=== PATIENT | female | born 1935 | race Caucasian/White ===

== ENCOUNTER 2017-02-12 05:49 | Inpatient (IN) ==
[2017-02-12 07:18] LABS: Basophils % 0.4 % (0.0-0.8); Eosinophils # 0.4 10*3/uL (0.0-0.87); Eosinophils % 5.4 % (0.00-10.9); Hemoglobin 12.8 GM/DL (12.0-16.0); Immature Granulocytes % 0.6 %; Immature Granulocytes Absolute 0.05 #; Lymphocytes # 1.3 10*3/uL (1.4-4.0); Lymphocytes % 17.2 % (21.3-54.2); Mean Corpuscular HGB Conc 32.8 GM/DL (32-36); Mean Corpuscular Hemoglobin 29 PG (27-34); Mean Platelet Volume 9.5 FL (9.6-12.0); Monocytes # 0.5 10*3/uL (0.11-0.8); Monocytes % 6.7 % (1.7-12.7); Neutrophils # 5.4 10*3/uL (1.4-7.4); Neutrophils % 69.7 % (38.7-73.9); Platelet Count 177 T/CUMM (130-400); Red Blood Count 4.43 MC/CUMM (3.8-5.5); Red Cell Distribution Width 14.6 % (9.3-17.3); White Blood Count 7.7 T/CUMM (4-12)
[2017-02-12 08:04] LABS: Calcium 9.7 MG/DL (8.5-10.1); Magnesium 2.6 MG/DL (1.8-2.4); Osmolality,Calculated 290.8 MOS/KG (273-304); Potassium 3.8 MMOL/L (3.5-5.1)
[2017-02-12] MEDS ORDERED: ACETAMINOPHEN 325 MG TABLET PO PRN (08:36)
[2017-02-12] MEDS ORDERED: DOCUSATE SODIUM 100 MG CAPSULE PO PRN (08:36)
[2017-02-12] MEDS ORDERED: MAGNESIUM SULF RIDER 2 GM in PREMIX 1 EACH IV PRN (08:36)
[2017-02-12] MEDS ORDERED: ZALEPLON 5 MG CAPSULE PO PRN (08:36)
[2017-02-12] MEDS ORDERED: ONDANSETRON 4 MG/2 ML VIAL IV PRN (08:36)
[2017-02-12] MEDS ORDERED: MAGNESIUM SULF RIDER 4 GM in PREMIX 1 EACH IV PRN (08:36)
[2017-02-12] MEDS ORDERED: POLYETHYLENE GLYCOL POWDER 17 GM PACK PO SCH (09:00)
[2017-02-12] MEDS ORDERED: BISACODYL 5 MG TABLET PO SCH (09:00)
[2017-02-12] MEDS: risperiDONE 1 MG TABLET PO SCH ×2 (10:18→21:03)
[2017-02-12] MEDS: LEVOTHYROXINE 125 MCG TABLET PO SCH (10:18)
[2017-02-12] MEDS: clonazePAM 0.5 MG TABLET PO SCH ×2 (10:18→21:03)
[2017-02-12] MEDS: ASPIRIN EC 81 MG TABLET PO SCH (10:18)
[2017-02-12] MEDS: FUROSEMIDE 40 MG TABLET PO SCH (10:19)
[2017-02-12] MEDS: MULTIVITAMIN (CENTRUM) TABLET PO SCH (10:19)
[2017-02-12] MEDS: POTASSIUM CHLORIDE 8 MEQ CAPSULE PO SCH (10:19)
[2017-02-12] MEDS: GABAPENTIN 600 MG TABLET PO SCH ×2 (10:20→21:03)
[2017-02-12] MEDS: CARBIDOPA/LEVODOPA 25-100 MG TABLET PO SCH ×2 (10:20→21:03)
[2017-02-12] MEDS: DOCUSATE SODIUM 100 MG CAPSULE PO SCH (10:20)
[2017-02-12] MEDS: CALCIUM (CARBONATE)/VITAMIN D 600 MG-400 UNIT TABLET PO SCH (10:20)
[2017-02-12] MEDS: ISOSORBIDE MONONITRATE 30 MG TABLET PO SCH (10:20)
[2017-02-12] MEDS: OMEGA 3 ACID ETHYL ESTERS 1 GM CAPSULE PO SCH ×2 (10:20→21:04)
[2017-02-12] MEDS: PANTOPRAZOLE 40 MG TABLET PO SCH (10:20)
[2017-02-12] MEDS: NYSTATIN POWDER 15 GM BOTTLE TOP SCH ×3 (10:21→21:04)
[2017-02-12] MEDS: LITHIUM 300 MG CAPSULE PO SCH (10:21)
[2017-02-12] MEDS: ENOXAPARIN 40 MG/0.4 ML SYRINGE SUBCUT SCH (10:21)
[2017-02-12] MEDS: TICAGRELOR 90 MG TABLET PO SCH ×2 (10:21→21:03)
[2017-02-12] MEDS: METOPROLOL SUCCINATE XL 25 MG TABLET PO SCH (10:25)
[2017-02-12] MEDS: HydrOXYzine PAMOATE 50 MG CAPSULE PO SCH ×2 (10:25→21:03)
[2017-02-12] MEDS: AMOXICILLIN/CLAV 500 MG TABLET PO SCH ×2 (10:25→16:30)
--- NOTE | 2017-02-12 12:17 | Cardiology History & Physical ---
Assessment and Plan (1) Syncope Status: Acute Assessment and plan: 82-year-old female, CAD, syncope, documented monomorphic and polymorphic wide QRS tachycardia, although tracings are heavy with artifacts. Underlying right bundle branch block, obesity, vaginal discharge, groin rash. -We discussed this first we have to address her skin infection and suspected vaginal infection, before we can proceed with an EP study plus minus ICD implant. -We will admit her to telemetry. -Start nystatin powder topical and Augmentin p.o. -UA/urine culture -MANUFACTURER REPRESENTATIVE consult. -Keep the metoprolol at 25 mg daily, baseline bradycardia limits dose increase. -If her skin findings and discharge improves, we can proceed with the planned studies as above, tomorrow. Current Visit: Yes (2) RBBB Status: Acute Current Visit: Yes (3) Wide QRS ventricular tachycardia Status: Acute Current Visit: Yes (4) Groin rash Status: Acute Current Visit: Yes (5) Vaginal discharge Status: Acute Current Visit: Yes History of Present Illness Chief complaint: Syncope, tachycardia, vaginal infection History of present illness: Ms. Michel is a 82 year old female, followed by dr. Alexander. H/o CAD, 1AVB/RBBB , obesity, HTN, HLP, BPD, parkinson. Outpatient monitoring confirmed monomorphic and polymorphic wide QRS tachycardia, although the tracings were heavy with artifacts. An EP study plus minus defibrillator implant was planned for today. She is feeling fine. On admission, she was found to have severe bilateral groin rash and vaginal discharge. She denies any UTI symptoms fever chills. She was not aware of her prior infections or MONOTYPE SETTER issues. She has vaginal itching. EKG sinus rhythm, borderline first-degree AV block, right bundle branch block. She has mild CKD, but WBC count is normal. Home Medications Medication Instructions Recorded Confirmed Type Aspirin [Ecotrin] 81 mg PO DAILY 02/11/17 02/12/17 History Bisacodyl Tab [Dulcolax Tab] 2 tablet PO Q7DAY 02/11/17 02/12/17 History Calcium Carb/Vit D3/Minerals [Sm 1 each PO DAILY 02/11/17 02/12/17 History Calcium 600+Minerals Tab] Carbidopa/Levodopa 25-100 [Sinemet 1 tablet PO BID 02/11/17 02/12/17 History 25-100] Docusate Sodium [Colace] 100 mg PO DAILY 02/11/17 02/12/17 History Furosemide Tab [Lasix Tab] 40 mg PO DAILY 02/11/17 02/12/17 History Gabapentin 600 mg PO BID 02/11/17 02/12/17 History HydrOXYzine PAMOATE CAP [Vistaril 50 mg PO Q12HR 02/11/17 02/12/17 History Cap] Isosorbide Mononitrate [Isosorbide 30 mg PO DAILY 02/11/17 02/12/17 History Mononitrate ER] Levothyroxine Tab [Synthroid Tab] 125 mcg PO DAILY 02/11/17 02/12/17 History Tees Toh Carbonate 150 mg PO BEDTIME 02/11/17 02/12/17 History Tees Toh Carbonate 300 mg PO DAILY 02/11/17 02/12/17 History Lovastatin [Mevacor] 40 mg PO DAILY W/SUPPER 02/11/17 02/12/17 History Metoprolol Succinate 25 mg PO DAILY 02/11/17 02/12/17 History Mirtazapine [Remeron] 30 mg PO BEDTIME 02/11/17 02/12/17 History Multivitamin [One Daily 1 each PO DAILY 02/11/17 02/12/17 History Multivitamin] Bascom-3/Dha/Epa/Fish Oil [Fish Oil 1 each PO BID 02/11/17 02/12/17 History 1,000 mg Softgel] Pantoprazole Tab [Protonix Tab] 40 mg PO DAILY 02/11/17 02/12/17 History Polyethylene Glycol Powder 17 gm PO DIRECTED 02/11/17 02/12/17 History [Miralax] Potassium Chloride 8 meq PO DAILY 02/11/17 02/12/17 History Ticagrelor [Brilinta] 90 mg PO BID 02/11/17 02/12/17 History clonazePAM [Clonazepam] 0.5 mg PO BID 02/11/17 02/12/17 History risperiDONE [Risperidone] 2 mg PO BID 02/11/17 02/12/17 History Allergies Allergy/AdvReac Type Severity Reaction Status Date / Time Sulfa (Sulfonamide Allergy Intermediate RASH Unverified 02/11/17 06:47 Antibiotics) fluoxetine [From Prozac] AdvReac Mild Confusion Unverified 02/11/17 06:47 12 point system: reviewed and no additional remarkable complaints except as stated Medical,Surgical,& Family Hx - Medical History Cardio: History of: Cardiac Dysrhythmia, CAD, Hypertension Psychological: History of: Anxiety Disorders, Bipolar Disorder, Schizophrenia Neurology: No history of: Seizures HEENT: History of: Eye Problem (Eye glasses intact), Dental Problems (upper dentures and nothing on lower) Endocrine: History of: Thyroid Disorder Respiratory: History of: Pneumonia (3 years ago [facility] system) Gastrointestinal: History of: GERD, GI Problems (constipation) Musculoskeletal: History of: Musculoskeletal Problems (Require physical therapy for mobility) - Surgical History Cardiac Surgeries: Sugical HX of: Cardiac Catheterization (month ago stent at [place] and history of stents over 4 years ago) - Family History Family History: Reports;: Family Heart Disease (Father passed of CA) Comment Only: Additional Family History (mother of emphysema) - Social History Smoking Status: Former smoker Type of Drug Use: None Cardiology Physical Exam - Constitutional Vitals: Vital Signs Temp Pulse Resp BP Pulse Ox 97 F L 51 L 16 161/73 97 02/12/17 07:49 02/12/17 07:49 02/12/17 07:49 02/12/17 07:49 02/12/17 07:49 Intake and Output 02/11/17 02/12/17 02/12/17 23:59 07:59 15:59 Other: Weight 103.873 kg Patient Weight 02/12/17 23:59 Weight 103.873 kg General appearance: no acute distress, morbidly obese - Head Head exam: Present: normal inspection, normocephalic - Eye Eye exam: Absent: conjunctival injection Pupils: Absent: dilated - ENT ENT exam: Present: normal external ear exam - Neck Neck exam: Present: normal inspection - Respiratory Respiratory exam: Present: clear to auscultation bilaterally. Absent: chest wall tenderness - Cardiovascular Cardiovascular exam: Present: bradycardia - GI/Abdominal GI/Abdominal exam: Present: normal bowel sounds - Extremities Exam Extremities exam: Present: normal inspection, edema (1+), other (groin rash) - Neurological Exam Neurological exam: Present: alert, oriented X3 - Psychiatric Psychiatric exam: Present: normal affect, normal mood - Skin Skin exam: Present: normal color, warm. Absent: cyanosis Result/EKG - Labs CBC & BMP: 02/12/17 07:11 02/12/17 07:11 Lab Results: I have reviewed the past 24 hour labs Labs: Laboratory Results - last 24 hr 02/12/17 02/12/17 07:11 07:11 WBC 7.7 RBC 4.43 Hgb 12.8 Hct 39.0 MCV 88.0 MCH 29 MCHC 32.8 RDW 14.6 Plt Count 177 MPV 9.5 L Neut % (Auto) 69.7 Lymph % (Auto) 17.2 L [place] % (Auto) 6.7 Eos % (Auto) 5.4 Baso % (Auto) 0.4 Neut # (Auto) 5.4 Lymph # (Auto) 1.3 L [place] # (Auto) 0.5 Eos # (Auto) 0.4 Baso # (Auto) 0.0 Immature Gran % 0.6 Nucleated RBC % 0.0 Immature Gran # 0.05 Nucleated RBCs # 0.00 Sodium 144 Potassium 3.8 Chloride 108 H Carbon Dioxide 29 Anion Gap 10.8 BUN 27 H Creatinine 1.50 H GFR Calculation 37 BUN/Creatinine Ratio 18.00 Glucose 101 Calculated Osmolality 290.8 Calcium 9.7 Magnesium 2.6 H - EKG EKG results: interpreted by me
[2017-02-12] MEDS ORDERED: POLYETHYLENE GLYCOL POWDER 17 GM PACK PO PRN (14:07)
--- NOTE | 2017-02-12 14:07 | EKG Report ---
Stationary ECG Study [facility] Test Date: 02/12/2017 6:26:49 AM Pat Name: OSCAR JACOBO Department: Room: 285 Gender: F Sat Instructor: : [id number] Requested by: Denny Segovia Order Number: [id number] Reading MD: DENNY SEGOVIA Intervals [place] Rate: 46 P: 75 [place]: 236 QRS: 94 QRSD: 171 T: -26 QT: 530 QTc: 488 Interpretive Statements SINUS BRADYCARDIA WITH SINUS ARRHYTHMIA WITH FIRST DEGREE AV BLOCK RIGHT BUNDLE BRANCH BLOCK T WAVE ABNORMALITY, POSSIBLE ANTEROLATERAL ISCHEMIA Electronically Signed On 02-13-17 22:43:13 CDT by DENNY SEGOVIA [email or web address]
[2017-02-12] MEDS: LOVASTATIN 20 MG TABLET PO SCH (16:30)
[2017-02-12 17:11] LABS: Apearance,Urine CLEAR (Clear); Bilirubin,Urine Negative (Negative); Blood, Urine Negative (Negative); Glucose,Urine (UA) Negative (Negative); Ketones,Urine Negative (Negative); Nitrite,Urine Negative (Negative); Protein,Urine Negative; RBC,Urine 1 /HPF (0-4); Squamous Epithelial Cell,Urine Occasional /HPF (0-10); Urine Color Colorless (Yellow); Urine Specific Gravity 1.004 (1.001-1.035); Urine Urobilinogen < 2.0 EU/DL (0.2-1.0); WBC,Urine 10 /HPF (0-6)
[2017-02-12] MEDS: MIRTAZAPINE 15 MG TABLET PO SCH (21:03)
[2017-02-12] MEDS: LITHIUM 150 MG CAPSULE PO SCH (21:03)
[2017-02-13] MEDS: AMOXICILLIN/CLAV 500 MG TABLET PO SCH ×3 (01:15→16:55)
[2017-02-13 06:22] LABS: Basophils % 0.4 % (0.0-0.8); Eosinophils # 0.4 10*3/uL (0.0-0.87); Eosinophils % 5.3 % (0.00-10.9); Hematocrit 38.5 VOL% (35.7-47.0); Hemoglobin 12.8 GM/DL (12.0-16.0); Immature Granulocytes % 0.5 %; Immature Granulocytes Absolute 0.04 #; Lymphocytes % 12.6 % (21.3-54.2); Mean Corpuscular HGB Conc 33.2 GM/DL (32-36); Mean Corpuscular Hemoglobin 29 PG (27-34); Mean Corpuscular Volume 87.9 FL (87-102); Mean Platelet Volume 9.5 FL (9.6-12.0); Monocytes # 0.5 10*3/uL (0.11-0.8); Monocytes % 6.5 % (1.7-12.7); Neutrophils # 6.2 10*3/uL (1.4-7.4); Neutrophils % 74.7 % (38.7-73.9); Platelet Count 185 T/CUMM (130-400); Red Blood Count 4.38 MC/CUMM (3.8-5.5); Red Cell Distribution Width 14.6 % (9.3-17.3); White Blood Count 8.3 T/CUMM (4-12)
[2017-02-13 07:01] LABS: Calcium 9.2 MG/DL (8.5-10.1); Magnesium 2.6 MG/DL (1.8-2.4); Osmolality,Calculated 293.7 MOS/KG (273-304)
--- NOTE | 2017-02-13 09:34 | Cardiology Progress Note ---
Assessment and Plan (1) Syncope Status: Acute Assessment and plan: 82-year-old female, CAD, syncope, documented monomorphic and polymorphic wide QRS tachycardia, although tracings are heavy with artifacts. Underlying right bundle branch block, obesity, vaginal discharge, groin rash. -We discussed risks and benefits of management options. We will proceed with a diagnostic EP study today, based on the results, we will either do a dual- chamber pacemaker implantation, due to intermittent symptomatic bradycardia, or if she has inducible ventricular tachyarrhythmia, she will need a dual-chamber ICD for secondary prevention, as her prior tracing showed episodes of suspected wide QRS tachycardia, both mono and polymorphic, although the tracings were heavily contaminated by artifacts. -Continue nystatin powder for the groin rash. -Continue Augmentin for the vaginal discharge. Improved. GOODWILL AMBASSADOR consult pending. -Once she is protected from bradycardia, will increase metoprolol. Current Visit: Yes (2) RBBB Status: Acute Current Visit: Yes (3) Wide QRS ventricular tachycardia Status: Acute Current Visit: Yes (4) Groin rash Status: Acute Current Visit: Yes (5) Vaginal discharge Status: Acute Current Visit: Yes Cardiology - PN: Subj Interval history: She had several episodes of shortness of breath yesterday. Telemetry showed occasional episodes of sinus bradycardia, down 35 bpm. No ventricular tachycardia. The groin rash improved. She is afebrile, cell counts normal. Exam (Progress Note) - Constitutional Vitals: Period Temp Pulse Resp BP Sys/Allen Pulse Ox Last 24 Hr 96.3 F-98.5 F 47-80 16-20 135-159/63-75 93-96 General appearance: normal weight, morbidly obese - Head Head exam: Present: normal inspection, normocephalic - Eye Eye exam: Absent: conjunctival injection Pupils: Absent: dilated - ENT ENT exam: Present: normal external ear exam - Neck Neck exam: Present: normal inspection - Respiratory Respiratory exam: Present: clear to auscultation bilaterally - Cardiovascular Cardiovascular exam: Present: bradycardia, regular rate and rhythm - GI/Abdominal GI/Abdominal exam: Present: normal bowel sounds. Absent: distended - Extremities Exam Extremities exam: Present: normal inspection, normal capillary refill. Absent: edema - Back Exam Back exam: Present: normal inspection - Neurological Exam Neurological exam: Present: alert, oriented X3 - Psychiatric Psychiatric exam: Present: normal affect, normal mood - Skin Skin exam: Present: normal color, warm, other (Groin rash improved). Absent: cyanosis Result/EKG - Labs CBC & BMP: 02/13/17 05:36 02/13/17 05:36 Lab Results: I have reviewed the past 24 hour labs Labs: Laboratory Results - last 24 hr 02/12/17 02/13/17 02/13/17 16:55 05:36 05:36 WBC 8.3 RBC 4.38 Hgb 12.8 Hct 38.5 MCV 87.9 MCH 29 MCHC 33.2 RDW 14.6 Plt Count 185 MPV 9.5 L Neut % (Auto) 74.7 H Lymph % (Auto) 12.6 L [place] % (Auto) 6.5 Eos % (Auto) 5.3 Baso % (Auto) 0.4 Neut # (Auto) 6.2 Lymph # (Auto) 1.0 L [place] # (Auto) 0.5 Eos # (Auto) 0.4 Baso # (Auto) 0.0 Immature Gran % 0.5 Nucleated RBC % 0.0 Immature Gran # 0.04 Nucleated RBCs # 0.00 Sodium 145 Potassium 4.0 Chloride 108 H Carbon Dioxide 26 Anion Gap 15.0 BUN 30 H Creatinine 1.50 H GFR Calculation 39 BUN/Creatinine Ratio 20.00 Glucose 106 Calculated Osmolality 293.7 Calcium 9.2 Magnesium 2.6 H Urine Color Colorless Urine Appearance Clear Urine pH 8.0 Ur Specific [place] 1.004 Urine Protein Negative Urine Glucose (UA) Negative Urine Ketones Negative Urine Blood Negative Urine Nitrate Negative Urine Bilirubin Negative Urine Urobilinogen < 2.0 H Urine Leukocytes Trace Urine RBC 1 Urine WBC 10 Ur Squamous Epith Cells Occasional Ur Culture Indicated? Ordered separately - EKG EKG results: interpreted by me
[2017-02-13] MEDS ORDERED: HEPARIN/NACL 0.9% 2 UNITS/ML 500 ML IV ONE ×2 (10:44)
[2017-02-13] MEDS ORDERED: LIDOCAINE 1% 20 ML VIAL ONE ×2 (10:44→12:01)
[2017-02-13] MEDS ORDERED: MIDAZOLAM 2 MG/2 ML VIAL ONE ×3 (11:02→13:03)
[2017-02-13] MEDS ORDERED: fentaNYL 100 MCG/2 ML VIAL ONE ×3 (11:03→13:03)
--- NOTE | 2017-02-13 11:04 | History and Physical Update ---
Sedation H&P Update - History and Physical H&P was reviewed, the patient examined and there: are no changes in the patients condition since last H&P was completed. - Dictation Physical: refer to H&P completed by admitting physician - Physical Exam Mental Status: alert and oriented Heart: regular rate and rhythm Lung: clear to auscultation Abdomen: within normal limits Vitals: within normal limits - Sedation Plan for Sedation: moderate Patient Consent: Procedure disscussed with patient and patinet has consented., Risks and benefits were discussed with patient,including infection,, bleeding, injury to surrounding structures, seizure, temporary nerve, Patient understands and accepts potential risks/benefits and agrees to ASA Class: III Airway Assessment: Class III: Soft palate, base of uvula visible
[2017-02-13] MEDS ORDERED: ISOPROTERENOL 1 MG/5 ML VIAL IV ONE (11:31)
[2017-02-13] MEDS ORDERED: VANCOMYCIN 500 MG VIAL ONE (11:54)
--- NOTE | 2017-02-13 12:11 | Cardiac Defibrillator ---
- Preoperative diagnosis Date of Procedure:: 02/13/17 Preop Diagnosis: sustained ventricular tacharrhythmia, either spontaneous or induced by electrophysiology study, not associated with an acute MN &not due to transient reversible cause Pre-op Diagnosis: +presyncope, document mVT and pVT Post-op diagnosis: same Procedure: PROCEDURAL SUMMARY Diagnostic EP study inducible sustained monomorphic ventricular tachycardia and atrial flutter with variable morphology. Dual chamber ICD implant from left axillary access. Defibrillator testing (NIPS). Successful procedures, no complications. PLAN Bed rest for 4 hours. CXR, ECG stat. Routine post ICD implant nursing care. Keep pressure dressing until AM. DIAGNOSES CAD Presyncope 1AVB, RBBB, sinus bradycardia mVT and pVT Sedation A timeout was performed. Moderate conscious sedation was initiated and maintained with iv. Versed and Fentanyl, for 125 minutes. The patient was continuously monitored by electrocardiography, pulse oximetry and NIBP. Antibiotic prophylaxis Iv. Vancomycin was used prior to the procedure. PROCEDURE The groins were prepped and draped. A 6 Fr and an 8 Fr sheath was instered into the RFV using a micropuncture kit. A diagnostic Quad catheter and a CS catheter was intriduced under fluoroscopic guidance. Baseline findings: Sinus rhythm, cycle length 1180 ms, MO 208 ms, QRS 165 ms, right bundle branch block, QT 434 ms. AH 140 ms, HV 78 ms. Variable VA conduction at 700ms RVA stim. VERP 600/260, 400/240, 330/230 ms. AV Wenckebach 340 ms. Anterograde conduction decremental, concentric. AV kalen ERP 600/240 ms. No AH jump. 600/240/200 milliseconds programmed atrial extra stimulation induced atrial flutter, with variable morphology and cycle lengths, initially with 260 ms CL. Atrial ATP transformed the arrhythmia into atrial fibrillation, which then terminated. Programmed ventricular extra stimulation at 600, 400, and 330 ms S1 did not induce sustained ventricular arrhythmia, up to 3 programmed extrastimuli. Multiple nonsustained ventricular tachycardias were observed. IV Isuprel was started and titrated up to 5 mics, the sinus rate increased to 80 bpm. The programmed ventricular stimulation was repeated. At 330/230/210/200 ms, sustained monomorphic ventricular tachycardia initiated with 230 ms cycle lengths, right bundle branch morphology, QRS duration 175 ms, superior axis. The arrhythmia was symptomatic and was terminated with ventricular ATP at 200 ms. Sinus rhythm resumed. The Isuprel was stopped. Conclusions of the EP study. Sinus bradycardia, with poor chronotropic response to Isuprel. Inducible atrial flutter, with variable morphology. Inducible sustained ventricular tachycardia. We proceeded with a dual-chamber ICD implantation for secondary prevention. The patient has prior documented wide QRS monomorphic and polymorphic tachyarrhythmia, presyncope. The left pectoral area was meticulously prepared with ChloroPrep surgical scrub. Sterile draping was applied and Ioban was used to cover the operation site. The image intensifier was draped with a sterile bag and positioned over the patient's chest. After infiltration with 1% lidocaine, an incision was made in the left infraclavicular area, parallel to the deltopectoral groove. The incision was carried down to the level of the pectoral fascia. A subcutaneous pocket was then created with electrocautery and blunt dissection. Hemostasis was then achieved with electrocautery. A micropuncture needle was used to access the left axillary vein under fluoroscopic guidance. The microfilament was used to introduce the micropuncture sheath, which the was used to introduce and advance a long hydrophylic guidewire into the inferior vena cava. A 10.5 Fr sheath was introduced over the guidewire. The dilator was removed. The right ventricular defibrillator lead was introduced through the sheath. The sheath was then peeled away. The curved stylet was used to move the lead into the right ventricular outflow tract. The stylet was then replaced with a straight stylet and the lead was moved into a stable position on the right ventricular septum. Adequate sensing and pacing threshold was confirmed. The active fixation mechanism was then deployed. Stable signal and pacing threshold was noted, with decrease in pacing impedance. No extracardiac stimulation was noted with high output pacing. The lead was then anchored to the subcutaneous tissue with 2-0 nonabsorbable suture, using the anchoring sleeve near the point of entry to the vein. Another 9 Fr sheath was introduced over the retained guidewire. The dilator was removed. The right atrial pacemaker lead was introduced through the sheath. The sheath was then peeled away. A straight stylet was used to move the lead into the right atrium. The stylet was then replaced with a curved J stylet and the lead was moved into a stable position in the right atrial appendage. Adequate sensing and pacing threshold was confirmed. The active fixation mechanism was then deployed. Stable signal and pacing threshold was noted, with decrease in pacing impedance. No extracardiac stimulation was noted with high output pacing. The lead was then anchored to the subcutaneous tissue with 2-0 nonabsorbable suture, using the anchoring sleeve near the point of entry to the vein. The retained guidewire was removed. The ICD generator was attached to the leads and sealed in the prescribed manner. The wound was flushed with Vancomycin . The generator was placed into the pocket and tied to the pectoral fascia using 2-0 nonabsorbable suture. Stable lead positions were confirmed with fluoroscopy. Ventricular fibrillation was induced with a 50Hz stim. The device promptly detected the arrhythmia and terminated it with a single 25J shock. The wound was closed using a double layer of 2-0 absorbable Vicryl sutures, followed by a subcuticular running suture with 4-0 Monocryl, then Exofin. A sterile, then a pressure dressing was applied. The device was then interrogated and programmed as detailed below. Device Type SN Location Medtronic Evera DR DDD ICD [id number] Left infraclavicular Lead Position Type SN P/R Threshold Impedance RA RA appendage Med[employer]onic 5076-52 [id number] 7.8 mV 1.7 V @ 0.5 ms 923 Ohm RV RV septum Medtronic 4260I80 [id number] 6.6 mV 1.1 V @ 0.5 ms 744 Ohm Bradycardia settings DDDR 60/130 Tachycardia settings VT @ 360 ms, VF @ 320 ms The implanted system is MRI conditional. Anesthesia: moderate conscious sedation Surgeon / Physician: Alan Segovia Card Filer: other (Olegario) Estimated blood loss: minimal Specimens: none sent Condition: stable Disposition: floor - Medications / Follow-up
[2017-02-13] MEDS ORDERED: TISSUE ADHESIVE 1 EACH APPLICATOR TOP ONE ×2 (13:30→13:31)
--- NOTE | 2017-02-13 14:35 | XRay Report ---
Referring Physician: Alan Segovia MD Exam: XR chest 1V portable Date: February 13, 2017 at 1:56 PM Reason: Lead placement Comparison: Chest PA lateral June 05, 2012 Findings: The cardiac silhouette is again enlarged, and a dual-lead cardiac pacing device is now in place. Note is made of eventration of the right hemidiaphragm. No focal consolidation, pneumothorax or pleural effusion is identified. No acute osseous process is seen. Impression: 1. Cardiomegaly. There has been interval placement of a cardiac pacing device. 2. No acute pulmonary process is identified. PROCEDURE INTERPRETED AT [facility] DEPARTMENT OF RADIOLOGY Final Report Signed by: Dr. Angel Wallis
[2017-02-13] MEDS: ASPIRIN EC 81 MG TABLET PO SCH (14:53)
[2017-02-13] MEDS: clonazePAM 0.5 MG TABLET PO SCH ×2 (14:53→22:56)
[2017-02-13] MEDS: MULTIVITAMIN (CENTRUM) TABLET PO SCH (14:53)
[2017-02-13] MEDS: CARBIDOPA/LEVODOPA 25-100 MG TABLET PO SCH ×2 (14:53→22:57)
[2017-02-13] MEDS: CALCIUM (CARBONATE)/VITAMIN D 600 MG-400 UNIT TABLET PO SCH (14:54)
[2017-02-13] MEDS: DOCUSATE SODIUM 100 MG CAPSULE PO SCH (14:54)
[2017-02-13] MEDS: LEVOTHYROXINE 125 MCG TABLET PO SCH (14:54)
[2017-02-13] MEDS: ISOSORBIDE MONONITRATE 30 MG TABLET PO SCH (14:54)
[2017-02-13] MEDS: TICAGRELOR 90 MG TABLET PO SCH ×2 (14:55→22:52)
[2017-02-13] MEDS: GABAPENTIN 600 MG TABLET PO SCH ×2 (14:55→22:58)
[2017-02-13] MEDS: POTASSIUM CHLORIDE 8 MEQ CAPSULE PO SCH (14:55)
[2017-02-13] MEDS: LITHIUM 300 MG CAPSULE PO SCH (14:56)
[2017-02-13] MEDS: OMEGA 3 ACID ETHYL ESTERS 1 GM CAPSULE PO SCH ×2 (14:56→22:59)
[2017-02-13] MEDS: METOPROLOL SUCCINATE XL 25 MG TABLET PO SCH (14:56)
[2017-02-13] MEDS: PANTOPRAZOLE 40 MG TABLET PO SCH (14:56)
[2017-02-13] MEDS: FUROSEMIDE 40 MG TABLET PO SCH (14:56)
[2017-02-13] MEDS: ENOXAPARIN 40 MG/0.4 ML SYRINGE SUBCUT SCH (14:57)
[2017-02-13] MEDS: NYSTATIN POWDER 15 GM BOTTLE TOP SCH ×3 (14:58→22:59)
[2017-02-13] MEDS: risperiDONE 1 MG TABLET PO SCH ×2 (14:59→22:52)
[2017-02-13] MEDS: HydrOXYzine PAMOATE 50 MG CAPSULE PO SCH ×2 (14:59→22:56)
[2017-02-13] MEDS: LOVASTATIN 20 MG TABLET PO SCH (16:55)
[2017-02-13] MEDS: LITHIUM 150 MG CAPSULE PO SCH (22:55)
[2017-02-13] MEDS: MIRTAZAPINE 15 MG TABLET PO SCH (22:59)
[2017-02-14] MEDS: oxyCODONE/ACETAMINOPHEN 5-325 MG TABLET PO PRN ×3 (00:04→21:25)
[2017-02-14] MEDS ORDERED: VANCOMYCIN INJ 1,000 MG in SODIUM CHLORIDE 0.9% 250 ML IV ONE (02:30)
[2017-02-14] MEDS: AMOXICILLIN/CLAV 500 MG TABLET PO SCH ×3 (03:29→16:27)
[2017-02-14 04:58] LABS: Basophils % 0.2 % (0.0-0.8); Eosinophils # 0.4 10*3/uL (0.0-0.87); Eosinophils % 3.2 % (0.00-10.9); Hematocrit 36.4 VOL% (35.7-47.0); Immature Granulocytes % 0.7 %; Immature Granulocytes Absolute 0.09 #; Lymphocytes # 0.7 10*3/uL (1.4-4.0); Lymphocytes % 5.2 % (21.3-54.2); Mean Corpuscular Hemoglobin 29 PG (27-34); Mean Corpuscular Volume 87.1 FL (87-102); Mean Platelet Volume 9.7 FL (9.6-12.0); Monocytes # 0.7 10*3/uL (0.11-0.8); Monocytes % 5.1 % (1.7-12.7); Neutrophils # 11.3 10*3/uL (1.4-7.4); Neutrophils % 85.6 % (38.7-73.9); Platelet Count 196 T/CUMM (130-400); Red Blood Count 4.18 MC/CUMM (3.8-5.5); Red Cell Distribution Width 14.8 % (9.3-17.3); White Blood Count 13.2 T/CUMM (4-12)
[2017-02-14 05:33] LABS: Calcium 8.5 MG/DL (8.5-10.1); Magnesium 2.5 MG/DL (1.8-2.4); Osmolality,Calculated 286.4 MOS/KG (273-304); Potassium 4.1 MMOL/L (3.5-5.1)
--- NOTE | 2017-02-14 08:05 | EKG Report ---
Stationary ECG Study [facility] Test Date: 02/13/2017 3:11:48 PM Pat Name: OSCAR JACOBO Department: Room: 285 Gender: F Waste Disposal Plant Operator: : [id number] Requested by: Denny Segovia Order Number: [id number] Reading MD: DENNY SEGOVIA Intervals [place] Rate: 63 P: 72 MD: 226 QRS: 101 QRSD: 161 T: 12 QT: 483 QTc: 490 Interpretive Statements SINUS RHYTHM WITH PROLONGED MD INTERVAL MARKED RIGHT AXIS DEVIATION RIGHT BUNDLE BRANCH BLOCK Electronically Signed On 02-15-17 16:03:01 CDT by DENNY SEGOVIA [email or web address]
[2017-02-14] MEDS: POTASSIUM CHLORIDE 8 MEQ CAPSULE PO SCH (08:21)
[2017-02-14] MEDS: LEVOTHYROXINE 125 MCG TABLET PO SCH (08:21)
[2017-02-14] MEDS: FUROSEMIDE 40 MG TABLET PO SCH (08:21)
[2017-02-14] MEDS: DOCUSATE SODIUM 100 MG CAPSULE PO SCH (08:21)
[2017-02-14] MEDS: GABAPENTIN 600 MG TABLET PO SCH ×2 (08:21→21:25)
[2017-02-14] MEDS: clonazePAM 0.5 MG TABLET PO SCH ×2 (08:21→21:26)
[2017-02-14] MEDS: ASPIRIN EC 81 MG TABLET PO SCH (08:22)
[2017-02-14] MEDS: CALCIUM (CARBONATE)/VITAMIN D 600 MG-400 UNIT TABLET PO SCH (08:22)
[2017-02-14] MEDS: OMEGA 3 ACID ETHYL ESTERS 1 GM CAPSULE PO SCH ×2 (08:22→21:26)
[2017-02-14] MEDS: MULTIVITAMIN (CENTRUM) TABLET PO SCH (08:22)
[2017-02-14] MEDS: TICAGRELOR 90 MG TABLET PO SCH ×2 (08:22→21:25)
[2017-02-14] MEDS: risperiDONE 1 MG TABLET PO SCH ×2 (08:22→21:25)
[2017-02-14] MEDS: METOPROLOL SUCCINATE XL 25 MG TABLET PO SCH (08:22)
[2017-02-14] MEDS: ISOSORBIDE MONONITRATE 30 MG TABLET PO SCH (08:22)
[2017-02-14] MEDS: PANTOPRAZOLE 40 MG TABLET PO SCH (08:22)
[2017-02-14] MEDS: CARBIDOPA/LEVODOPA 25-100 MG TABLET PO SCH ×2 (08:23→21:26)
[2017-02-14] MEDS: ENOXAPARIN 40 MG/0.4 ML SYRINGE SUBCUT SCH (08:23)
[2017-02-14] MEDS: NYSTATIN POWDER 15 GM BOTTLE TOP SCH ×3 (08:24→21:26)
[2017-02-14] MEDS: LITHIUM 300 MG CAPSULE PO SCH (08:26)
[2017-02-14] MEDS: HydrOXYzine PAMOATE 50 MG CAPSULE PO SCH ×2 (08:31→21:25)
--- NOTE | 2017-02-14 12:59 | Cardiology Progress Note ---
Assessment and Plan (1) Syncope Status: Acute Assessment and plan: 82-year-old female, CAD, syncope, documented monomorphic and polymorphic wide QRS tachycardia, although tracings are heavy with artifacts. Underlying right bundle branch block, obesity, vaginal discharge, groin rash. 02/13: EP study: Inducible atrial flutter and ventricular tachycardia. Dual- chamber ICD implanted, with defibrillator testing. -Dual-chamber ICD. The implant site is healing well, normal lead positions and parameters on device interrogation -CAD. Increase Toprol-XL to 50 mg daily continue aspirin, Plavix, statin -AFL. Going to monitor her arrhythmia burden with the device. She will be a candidate for anticoagulation, if the atrial arrhythmia recurs. -Continue nystatin powder for the groin rash. Improved. -Continue Augmentin for the vaginal discharge. Improved. REGISTERED NURSE consult was requested -PT evaluation. She will need to wear a sling for a week, quite deconditioned. May need swing bed for a few days. -Elevated WBC. No fever. The chest x-ray is quite underpenetrated and she does not have respiratory symptoms. Urine was checked clear. Continue to monitor -Plan to discharge tomorrow, if stable Current Visit: Yes (2) RBBB Status: Acute Current Visit: Yes (3) Wide QRS ventricular tachycardia Status: Acute Current Visit: Yes (4) Groin rash Status: Acute Current Visit: Yes (5) Vaginal discharge Status: Acute Current Visit: Yes Cardiology - PN: Subj Interval history: She is not feeling well today. She had a panic attack earlier today. I removed the pressure dressing there is no hematoma, there is a small ecchymosis around the left breast. WBC elevated. She is afebrile. Chest x-ray is underpenetrated, shows normal ICD lead positions. The groin access site has no hematoma. The groin rash improved. REGISTERED NURSE still did not see the patient. There seems to be no significant vaginal discharge at this point. Exam (Progress Note) - Constitutional Vitals: Period Temp Pulse Resp BP Sys/Allen Pulse Ox Last 24 Hr 96.6 F-98.5 F 61-81 14-20 102-160/55-87 90-96 General appearance: normal weight, morbidly obese - Head Head exam: Present: normal inspection, normocephalic - Eye Eye exam: Absent: conjunctival injection Pupils: Absent: dilated - ENT ENT exam: Present: normal external ear exam - Neck Neck exam: Present: normal inspection - Respiratory Respiratory exam: Present: clear to auscultation bilaterally - Cardiovascular Cardiovascular exam: Present: regular rate and rhythm - GI/Abdominal GI/Abdominal exam: Present: normal bowel sounds. Absent: distended - Extremities Exam Extremities exam: Present: normal inspection, normal capillary refill. Absent: edema - Neurological Exam Neurological exam: Present: alert, oriented X3 - Psychiatric Psychiatric exam: Present: normal affect, normal mood - Skin Skin exam: Present: normal color, warm. Absent: cyanosis Result/EKG - Labs CBC & BMP: 02/14/17 04:32 02/14/17 04:32 Lab Results: I have reviewed the past 24 hour labs Labs: Laboratory Results - last 24 hr 02/14/17 02/14/17 04:32 04:32 WBC 13.2 H D RBC 4.18 Hgb 12.0 Hct 36.4 MCV 87.1 MCH 29 MCHC 33.0 RDW 14.8 Plt Count 196 MPV 9.7 Neut % (Auto) 85.6 H Lymph % (Auto) 5.2 L [place] % (Auto) 5.1 Eos % (Auto) 3.2 Baso % (Auto) 0.2 Neut # (Auto) 11.3 H Lymph # (Auto) 0.7 L [place] # (Auto) 0.7 Eos # (Auto) 0.4 Baso # (Auto) 0.0 Immature Gran % 0.7 Nucleated RBC % 0.0 Immature Gran # 0.09 Nucleated RBCs # 0.00 Sodium 140 Potassium 4.1 Chloride 107 Carbon Dioxide 23 Anion Gap 14.1 BUN 30 H Creatinine 1.50 H GFR Calculation 39 BUN/Creatinine Ratio 20.00 Glucose 127 H Calculated Osmolality 286.4 Calcium 8.5 Magnesium 2.5 H - EKG EKG results: interpreted by me
[2017-02-14] MEDS ORDERED: METOPROLOL SUCCINATE XL 25 MG TABLET PO SCH (13:00)
[2017-02-14] MEDS: LOVASTATIN 20 MG TABLET PO SCH (16:27)
--- NOTE | 2017-02-14 19:32 | XRay Report ---
History: Post pacemaker placement Date: 02/14/2017 Study: Chest x-ray AP portable Comparison exam: 02/13/2017 The left subclavian multilead pacemaker/defibrillator device is stable in appearance. There is no pneumothorax. There is continued cardiomegaly. The pulmonary vasculature is borderline prominent, though the exam was performed in shallow inspiration. The lungs are grossly clear when accounting for shallow inspiration with bronchovascular crowding in the lower lungs, as well as light radiographic technique. There is no gross pleural effusion. Osseous structures are similar. Impression: Shallow inspiration. Stable appearance of the pacemaker device. No pneumothorax. Stable cardiomegaly PROCEDURE INTERPRETED AT [facility] OF RAD[facility]OLOG[facility] Final Report Signed by: Dr. Shelia Latham
[2017-02-14] MEDS: MIRTAZAPINE 15 MG TABLET PO SCH (21:24)
[2017-02-14] MEDS: LITHIUM 150 MG CAPSULE PO SCH (21:26)
[2017-02-15] MEDS: AMOXICILLIN/CLAV 500 MG TABLET PO SCH (01:33)
[2017-02-15 06:24] LABS: Basophils % 0.1 % (0.0-0.8); Eosinophils # 0.3 10*3/uL (0.0-0.87); Eosinophils % 1.8 % (0.00-10.9); Hematocrit 35.2 VOL% (35.7-47.0); Hemoglobin 11.7 GM/DL (12.0-16.0); Immature Granulocytes % 0.7 %; Lymphocytes # 0.7 10*3/uL (1.4-4.0); Lymphocytes % 4.8 % (21.3-54.2); Mean Corpuscular HGB Conc 33.2 GM/DL (32-36); Mean Corpuscular Hemoglobin 29 PG (27-34); Mean Corpuscular Volume 86.9 FL (87-102); Mean Platelet Volume 9.8 FL (9.6-12.0); Monocytes % 7.4 % (1.7-12.7); Neutrophils # 11.8 10*3/uL (1.4-7.4); Neutrophils % 85.2 % (38.7-73.9); Platelet Count 181 T/CUMM (130-400); Red Blood Count 4.05 MC/CUMM (3.8-5.5); White Blood Count 13.9 T/CUMM (4-12)
[2017-02-15 06:51] LABS: Calcium 9.2 MG/DL (8.5-10.1); Magnesium 2.8 MG/DL (1.8-2.4); Osmolality,Calculated 287.5 MOS/KG (273-304); Potassium 4.2 MMOL/L (3.5-5.1)
[2017-02-15 07:18] LABS: Eosinophils 1 % (0-10); Hypochromasia 1+; Lymphocytes 4 % (20-55); Microcytosis 1+; Ovalocytes Slight; Segmented Neutrophils 86 % (50-85); Total Cells Counted 100
[2017-02-15 07:19] LABS: Platelet Estimate Adequate
[2017-02-15] MEDS ORDERED: ENOXAPARIN 30 MG/0.3 ML SYRINGE SUBCUT SCH (09:00)
[2017-02-15] MEDS ORDERED: AMOXICILLIN/CLAV 500 MG TABLET PO SCH (09:00)
[2017-02-15] MEDS: risperiDONE 1 MG TABLET PO SCH (09:06)
[2017-02-15] MEDS: OMEGA 3 ACID ETHYL ESTERS 1 GM CAPSULE PO SCH (09:06)
[2017-02-15] MEDS: TICAGRELOR 90 MG TABLET PO SCH (09:07)
[2017-02-15] MEDS: POTASSIUM CHLORIDE 8 MEQ CAPSULE PO SCH (09:07)
[2017-02-15] MEDS: HydrOXYzine PAMOATE 50 MG CAPSULE PO SCH (09:07)
[2017-02-15] MEDS: CALCIUM (CARBONATE)/VITAMIN D 600 MG-400 UNIT TABLET PO SCH (09:07)
[2017-02-15] MEDS: GABAPENTIN 600 MG TABLET PO SCH (09:08)
[2017-02-15] MEDS: MULTIVITAMIN (CENTRUM) TABLET PO SCH (09:08)
[2017-02-15] MEDS: ASPIRIN EC 81 MG TABLET PO SCH (09:08)
[2017-02-15] MEDS: PANTOPRAZOLE 40 MG TABLET PO SCH (09:08)
[2017-02-15] MEDS: ISOSORBIDE MONONITRATE 30 MG TABLET PO SCH (09:08)
[2017-02-15] MEDS: CARBIDOPA/LEVODOPA 25-100 MG TABLET PO SCH (09:08)
[2017-02-15] MEDS: DOCUSATE SODIUM 100 MG CAPSULE PO SCH (09:09)
[2017-02-15] MEDS: LEVOTHYROXINE 125 MCG TABLET PO SCH (09:09)
[2017-02-15] MEDS: NYSTATIN POWDER 15 GM BOTTLE TOP SCH (09:09)
[2017-02-15] MEDS: LITHIUM 300 MG CAPSULE PO SCH (09:09)
[2017-02-15] MEDS: FUROSEMIDE 40 MG TABLET PO SCH (09:09)
[2017-02-15] MEDS: clonazePAM 0.5 MG TABLET PO SCH (09:09)
--- NOTE | 2017-02-15 11:16 | Discharge Summary ---
Hospital Course - Hospital Course Hospital Course: Ms. Michel is a 82 year old female, followed by dr. Alexander. H/o CAD, 1AVB/RBBB , obesity, HTN, HLP, BPD, parkinson. She has episodes of presyncope, outpatient monitoring confirmed monomorphic and polymorphic wide QRS tachycardia , although the tracings were heavy with artifacts. Her systolic function was preserved. She was admitted for EP evaluation. On admission, she was noted to have severe bilateral groin rash and vaginal discharge. The groin rash was treated with nystatin, with good response. Augmentin was started for discharge, which also improved. There was no fever or WBC elevation. Diagnostic EP study confirmed inducible atrial flutter, with variable morphology , and inducible sustained monomorphic ventricular tachycardia, which required ATP due to hemodynamic instability. She underwent a dual-chamber ICD implantation and successful defibrillator testing. There were no complications. Postprocedure, she had an episode of anxiety, which was treated medically. She will be discharged back to her [facility] today. -She will need to follow-up in 1 week for an ICD/wound check. -She had mild acute kidney injury during this hospital stay, we will repeat a BMP/magnesium in 1 week. -Follow-up with Dr. Segovia in 1 month. -Post ICD implant activity limitations and implant site care were discussed. -She will then resume follow-up with her information technology associate, Dr. Das. -We will monitor the ICD remotely. The previously documented wide QRS tachycardia may have been atrial flutter, with aberrancy. She has a right bundle branch block at baseline. If she has clinical atrial tachyarrhythmia, detected by the ICD, she would be a candidate for anticoagulation. For now, continue dual antiplatelets. The beta anna was increased. -She will need to follow-up with her primary care physician regarding the vaginal discharge. This resolved with Augmentin. An GENERAL LOT ATTENDANT evaluation may be warranted. Continue Augmentin for 5 more days. -Continue nystatin powder for the groin rash. Improved. 35 minutes spent on discharge Diagnosis - Discharge Diagnosis (1) Syncope Status: Acute (2) RBBB Status: Acute (3) Wide QRS ventricular tachycardia Status: Acute (4) Groin rash Status: Acute (5) Vaginal discharge Status: Acute Discharge Plan - Discharge Data Disposition: Disch/Xfer to Snf Condition at Discharge: Stable Discharge Diet: advance to your usual diet Activity: resume usual activities as tolerated Hygiene: keep area(s) dry Weight Bearing at Discharge: full weight bearing Driving: not until seen by doctor Contact your physician if you experience:: fever over 101, Difficulty voiding, Redness or swelling, Nausea/Vomiting, Shortness of breath, Bleeding, pain uncontrolled by pain medications - Discharge Medications New Acetaminophen Tab [Tylenol Tab] 650 mg PO Q4H PRN #30 tablet PRN Reason: Fever, Headache, Mild Pain Docusate Sodium Cap [Colace Cap] 100 mg PO BID PRN #60 capsule PRN Reason: Constipation Metoprolol Succinate Xl [Toprol Xl] 50 mg PO DAILY #90 tablet Nystatin Powder [Mycostatin Powder] 1 applic TOP TID #30 applic Amoxicillin/Clav Tab [Augmentin Tab] 500 mg PO Q12H #10 tablet Continue Furosemide Tab [Lasix Tab] 40 mg PO DAILY Ticagrelor [Brilinta] 90 mg PO BID clonazePAM [Clonazepam] 0.5 mg PO BID [place]-3/Dha/Epa/Fish Oil [Fish Oil 1,000 mg Softgel] 1 each PO BID [place] Carbonate 150 mg PO BEDTIME Gabapentin 600 mg PO BID Docusate Sodium [Colace] 100 mg PO DAILY Calcium Carb/Vit D3/Minerals [ Calcium 600+Minerals Tab] 1 each PO DAILY Bisacodyl Tab [Dulcolax Tab] 2 tablet PO FR HydrOXYzine PAMOATE CAP [Vistaril Cap] 50 mg PO Q12HR Polyethylene Glycol Powder [Miralax] 17 gm PO TUTH Pantoprazole Tab [Protonix Tab] 40 mg PO DAILY Lovastatin [Mevacor] 40 mg PO DAILY W/SUPPER risperiDONE [Risperidone] 2 mg PO BID Multivitamin [One Daily Multivitamin] 1 each PO DAILY Levothyroxine Tab [Synthroid Tab] 125 mcg PO DAILY@0700 Carbidopa/Levodopa 25-100 [Sinemet 25-100] 1 tablet PO BID Isosorbide Mononitrate [Isosorbide Mononitrate ER] 30 mg PO DAILY Aspirin [Ecotrin] 81 mg PO DAILY Mirtazapine [Remeron] 30 mg PO BEDTIME Potassium Chloride 8 meq PO DAILY [place] Carbonate 300 mg PO DAILY Discontinued Metoprolol Succinate 25 mg PO DAILY - Follow Up or Referral Follow Up: Alan Segovia MD [Physician] - 1 Week (Follow up with PCP in 1 week for vaginal discharge, groin rash Follow up with [facility] for ICD check and a nursing wound check - Isela Cassidy Check BMP/Mg in 1 week at [facility] Follow up with dr. Segovia 1 in 1 month) - Forms/Instructions Exam - Constitutional Vitals: Period Temp Pulse Resp BP Sys/Allen Pulse Ox Last 24 Hr 97.7 F-99.3 F 70-95 16-24 122-141/7-95 91-96 General appearance: normal weight, morbidly obese - Head Head exam: Present: normal inspection, normocephalic - Eye Eye exam: Absent: conjunctival injection Pupils: Absent: dilated - ENT ENT exam: Present: normal external ear exam - Neck Neck exam: Present: normal inspection - Respiratory Respiratory exam: Present: clear to auscultation bilaterally. Absent: accessory muscle use, decreased breath sounds - Cardiovascular Cardiovascular exam: Present: regular rate and rhythm - GI/Abdominal GI/Abdominal exam: Present: normal bowel sounds. Absent: distended - Extremities Exam Extremities exam: Present: normal inspection, normal capillary refill. Absent: edema - Back Exam Back exam: Present: normal inspection - Neurological Exam Neurological exam: Present: alert, oriented X3 - Psychiatric Psychiatric exam: Present: normal affect, normal mood - Skin Skin exam: Present: normal color, warm, other (Ecchymosis around the left breast , no ICD hematoma. No groin hematoma.). Absent: cyanosis Discharge Results Procedures and tests throughout hospitalization: Pending Orders 02/13/17 10:19 CL heart Routine 02/16/17 04:00 BMP w/ Mg [Basic Metabolic Panel w/Mg] IN AM Comp Blood Count Auto Diff IN AM Labs on day of discharge: Labs from last 24 hours 02/15/17 02/15/17 06:04 06:04 WBC 13.9 H RBC 4.05 Hgb 11.7 L Hct 35.2 L MCV 86.9 L MCH 29 MCHC 33.2 RDW 15.0 Plt Count 181 MPV 9.8 Neut % (Auto) 85.2 H Lymph % (Auto) 4.8 L [place] % (Auto) 7.4 Eos % (Auto) 1.8 Baso % (Auto) 0.1 Neut # (Auto) 11.8 H Lymph # (Auto) 0.7 L [place] # (Auto) 1.0 H Eos # (Auto) 0.3 Baso # (Auto) 0.0 Total Counted 100 Immature Gran % 0.7 Nucleated RBC % 0.0 Immature Gran # 0.10 Segmented Neutrophils 86 H Lymphocytes 4 L Monocytes 9 Eosinophils 1 Nucleated RBCs # 0.00 Platelet Estimate Adequate Hypochromasia 1+ Microcytosis 1+ Ovalocytes Slight Sodium 139 Potassium 4.2 Chloride 104 Carbon Dioxide 24 Anion Gap 15.2 H BUN 35 H Creatinine 1.90 H GFR Calculation 30 BUN/Creatinine Ratio 18.00 Glucose 146 H Calculated Osmolality 287.5 Calcium 9.2 Magnesium 2.8 H - Imaging and Cardiology Cardiology Procedure: image reviewed by me, report reviewed by me DS: Provider Date of admission: 02/12/17 08:36 Primary care physician: Nonstaff Physician Attending physician on admission: Alan Segovia MD Consults: 02/12/17 08:36 Consult to Physician [CONS] Routine Comment: Consulting Provider: Consult to Specialist Group: OBGYN When should Consulting Provider be notified: Now 02/12/17 09:37 Consult to Pastoral Services [CONS] Routine Comment: Pastoral Screen: Request Slurry Control Operator Helper Visit 02/14/17 12:59 PT [Consult to Physical Therapy] [CONS] Routine Reason for Physical Therapy: Evaluate and Treat Discharging clinician: Alan Segovia MD Expected date of discharge: 02/15/17
[2017-02-15 12:50] VITALS: BP 131/66
== END 2017-02-15 13:30 | disposition home or self-care (01) | DRG 227 ==
LOC: N.CL 05:49 → N.TELEN 08:36
PROVIDERS: ADMIT Internal Medicine Clinical Cardiac Electrophysiology; ATTEND Internal Medicine Clinical Cardiac Electrophysiology